=== PATIENT | male | born 1990 | race Caucasian/White ===

== ENCOUNTER 2023-10-07 15:01 | Emergency (ER) | payer BC, SELFPAY ==
[2023-10-07 15:03] VITALS: BP 176/133; PULSE 92; RESP 16; TEMP 36.8; O2SAT 99; BMI 46.5
--- NOTE | 2023-10-07 15:36 | ED.VIS.LOWEX ---
HPI <DEMETRIA Lopez - Last Filed: 10/07/23 16:49> History of Present Illness Chief Complaint: Lower Extremity Injury Narrative Narrative: Patient presenting today due to pain to his right ankle that he has had since Sunday after inverting his ankle while going down the stairs. He is able to ambulate. PFSH <DEMETRIA Lopez - Last Filed: 10/07/23 16:49> PFSH Allergy/AdvReac Type Severity Reaction Status Date / Time No Known Allergies Allergy Verified 10/07/23 15:03 Social History Smoking Status: Never smoker ROS <DEMETRIA Lopez - Last Filed: 10/07/23 16:49> ROS ED Constitutional Constitutional ED: Denies chills or fever(s) Cardiovascular Cardiovascular: Denies chest pain Respiratory/Chest Respiratory/Chest: Denies dyspnea Gastrointestinal Gastrointestinal: Denies abdominal pain, nausea or vomiting Musculoskeletal Musculoskeletal: Reports arthralgias Integumentary Denies rash Neurologic Neurologic: Denies paresthesias EXAM <DEMETRIA Lopez - Last Filed: 10/07/23 16:49> Physical Exam Const Vital Signs: 10/07/23 15:03 Temperature 98.3 F Temperature Source Temporal Pulse Rate 92 Respiratory Rate 16 Blood Pressure 176/133 H Blood Pressure Mean 147 Pulse Ox 99 Positive well nourished, well developed and no apparent distress General Appearance ED: well developed HEENT Reports normocephalic and head/scalp atraumatic Mouth ED: Yes moist mucous membranes normal Eyes PERRL and EOMs intact bilaterally Neck full ROM and supple Chest Wall inspection of chest normal Resp normal respiratory effort and clear to auscultation bilaterally Cardio regular rate and regular rhythm Back/Spine normal ROM and normal to inspection Extremity normal to inspection and full ROM Extremity Narrative: Minimal pain and edema to the right lateral malleolus, no pain to the right foot, no pain to the proximal fibula. Right DP pulse 2+, good capillary refill, sensation intact. Neuro oriented x3, CN's II-XII intact bilaterally, moves all extremities, no focal motor deficits and no sensory deficits noted Sensorium / Orientation: awake and alert Psych mental status grossly normal and thought process normal Skin no rashes or lesions noted and no wounds <Dr. Pal Mitchell DO - Last Filed: 10/07/23 16:21> Physical Exam Const Vital Signs: 10/07/23 15:03 Temperature 98.3 F Temperature Source Temporal Pulse Rate 92 Respiratory Rate 16 Blood Pressure 176/133 H Blood Pressure Mean 147 Pulse Ox 99 [facility] <DEMETRIA Lopez - Last Filed: 10/07/23 16:49> [facility] Narrative Medical decision making narrative: Patient presenting today with right ankle pain after inverting his ankle while going down the stairs Sunday. X-ray will be obtained to rule out fracture. I did offer analgesia, he declined. He is able to ambulate. His x-ray is negative for fracture. RICE instructions were discussed, patient discharged home stable condition. He can alternate Tylenol and ibuprofen as needed for his pain. Radiography X-Ray: Read by ED Physician Diagnostic Testing: Clinical Impression(s) from Imaging Studies Ankle X-Ray 10/07/23 15:45 IMPRESSION: There is soft tissue swelling. Electronically Signed: David Pang MD at 15:59 EDT , <Dr. Pal Mitchell, - Last Filed: 10/07/23 16:21> [facility] Radiography Diagnostic Testing: Clinical Impression(s) from Imaging Studies Ankle X-Ray 10/07/23 15:45 IMPRESSION: There is soft tissue swelling. Electronically Signed: David Pang MD at 15:59 EDT , Treatment and Re-Evaluation Narrative: I have personally performed a face to face assessment of the patient and have reviewed the HANSA Note. I performed a substantive portion of the visit including all aspects of the following. My martinez findings include: History is 33-year-old male posttrauma day 2 from an inversion injury to the right ankle. He states he has been able to ambulate on it. It has been swollen and somewhat tender at rest. He notes most of the tenderness is over the ATF on the right ankle. Today noted some bruising when he took his dressing down. Exam is mild swelling and ecchymosis laterally. No obvious deformity. Neurovascular intact. No fibular head tenderness. No fifth metatarsal tenderness no tibial shaft pain. Medical Decison Making my independent interpretation of the plain films of the left ankle is no obvious fracture. Patient will continue home care and we will treat this as a sprain. Follow-up if not improving return if worsening Discharge Plan Triage Chief Complaint: Lower Extremity Injury ED Midlevel Provider: Roxi Martinez ED Provider: Pal Mitchell Dx/Rx/DC Orders Clinical Impression: Right ankle sprain Instructions: ED Ankle Sprain (Adult) Primary Care Provider: Care Physician,No Primary Referrals: Levi Duval DPM [Med Staff - Active Staff] - 10-14 Days if not better Care Physician,No Primary [Primary Care Provider] - Activity Restrictions/Additional Instructions: You can alternate Tylenol and ibuprofen as needed for your pain. Print Language: French Disposition Disposition: Home, Self Care Discharge Date/Time: 10/07/23 16:35
--- NOTE | 2023-10-07 15:45 | RAD_ITS ---
STUDY: XR Ankle Min 3 Views REASON FOR EXAM: Male, 33 years old. ANKLE PAIN TECHNIQUE: XR Ankle Min 3 Views RIGHT COMPARISON: None. FINDINGS: Normal visualized distal tibia and fibula. Normal medial and lateral malleoli. Normal tibiotalar articulation and ankle mortise. The visualized subtalar, talonavicular, calcaneocuboid and tarsal articulations are normal. There is an enthesophyte involving the posterior superior calcaneus at the site of insertion of the Achilles tendon. There is soft tissue swelling around the ankle. RAD/Ankle min 3 Views IMPRESSION: There is soft tissue swelling. Electronically Signed: David Pang MD at 15:59 EDT ,
== END 2023-10-07 16:35 | disposition home or self-care (01) ==
PROVIDERS: Emergency Provider Emergency Medicine; Visit Provider Emergency Medicine
DX: S93.401A Sprain of unspecified ligament of right ankle, initial encounter (principal); X58.XXXA Exposure to other specified factors, initial encounter
CPT/HCPCS: 73610; 99282